=== PATIENT | female | born 1970 ===

== ENCOUNTER 2021-12-13 09:58 | Day surgery (SDC) | payer OTHER | END 2021-12-13 17:50 | disposition home or self-care (01) | LOC: AMB-ENDOS 09:58 → CIR.AMB 14:30 → AMB-ENDOS 17:50 | PROVIDERS: ATTEND Colon & Rectal Surgery | DX: D12.3 Benign neoplasm of transverse colon (principal); K64.4 Residual hemorrhoidal skin tags; Z85.3 Personal history of malignant neoplasm of breast ==